=== PATIENT | female | born 1950 | race Caucasian/White ===

== ENCOUNTER 2020-12-31 14:34 | Emergency (ER) | payer OTHER, MEDICAID ==
[~2020-12-31] VITALS: Ht 165.1 cm; Wt 68.0 kg
[2020-12-31 14:34] VITALS: BP_SYST 160
--- NOTE | 2020-12-31 14:34 | NUR ---
BROUGHT IN BY [facility] AND TRIAGED IN HALLWAY, AWAITING ER BED AVAILABILITY
--- NOTE | 2020-12-31 14:50 | NUR ---
PT REFUSED TO HAVE CHEST XRAY AND TO HAVE BLOOD DRAWN. PT DID ALLOW STAFF TO DO A COVID SWAB.
--- NOTE | 2020-12-31 16:00 | NUR ---
ER at bedside examining patient.
--- NOTE | 2020-12-31 16:46 | NUR ---
Pt resting in [place]. No distress noted at this time. Breathing is even and unlabored.
--- NOTE | 2020-12-31 19:34 | NUR ---
Patient to be transferred to [facility]. Is being transferred due to higher level of care. Receiving facility has accepting physician and available space. ER physician has signed transfer form. Patient or responsible alliance party has agreed to transfer and signed form. Patient belongings inventoried and will be sent with patient. Copy of nursing notes, lab reports, EKG, Physicians Orders and X-rays to be sent with patient. Report called to Chaparro PEREIRA at receiving facility. Receiving physician is Dr. Colin. ambulance service has been called for transfer. ETA is [id number].
--- NOTE | 2020-12-31 19:36 | NUR ---
Pt resting in [facility] no distress at this time. Pt refused water and food when offered.
[2020-12-31 21:14] VITALS: BP_SYST 140
--- NOTE | 2020-12-31 22:18 | NUR ---
Pt transfered back to [place] with [facility] ambulance. Pt is medically cleared.
--- NOTE | 2020-12-31 22:18 | NUR ---
Patient given written and verbal discharge instructions and verbalizes understanding. ER MD discussed with patient the results and treatment provided. Patient in stable condition. ID arm band removed. Patient educated on pain management and to follow up with PMD. Pain Scale 0/10. Opportunity for questions provided and answered. Medication side effect fact sheet provided.
== END 2020-12-31 22:18 ==
LOC: SED 14:34
DX: Z02.89 Encounter for other administrative examinations (principal); Z20.822 Contact with and (suspected) exposure to COVID-19; F20.9 Schizophrenia, unspecified
CPT/HCPCS: 36415; 99285